=== PATIENT | male | born 1940 | race Caucasian/White ===

== ENCOUNTER → 2016-11-08 | Day surgery (SDC) | payer OTHER ==
[~2016-11-08] MED LIST: ALEVE PM CAPLE1 EACH; ALEVE220 M1 PO; CENTRUM PO; COUMADIN2.5 MG PO; LORTAB 10-5001 EACH PO; MOVE FREE; PANTOPRAZOLE SO40 MG PO; VOLTAREN75 MG PO; WARFARIN SODIUM2 MG PO
--- NOTE | ~2016-11-08 | OR ---
Unit #: [id number] #: [id number] Patient: PHILIPP KUMAR [id number] [address] [address] [id number] MR#: [id number] NAME: PHILIPP KUMAR. ROOM: Date of Procedure: 11/08/2016 Admission Date: 11/08/2016 Surgeon: Riley Morgan M.D. : 1940 Attending Physician: Riley Morgan M.D. Primary Care Physician: Nj Douglass M.D. OPERATIVE REPORT PRIMARY CARE PHYSICIAN Nj Douglass M.D. PREOPERATIVE DIAGNOSES Left upper quadrant abdominal pain and dyspepsia as well as left lower quadrant abdominal pain and colorectal cancer screening. PROCEDURES PERFORMED Upper gastrointestinal endoscopy and biopsy as well as colonoscopy up to cecum. POSTOPERATIVE DIAGNOSES For upper endoscopy: 1. The patient had medium-sized hiatus hernia. 2. There was mild prepyloric antral erosive gastritis. 3. There was moderate focal patchy erosive duodenitis involving the duodenal bulb. 4. Rest of the examination up to third part of duodenum was normal. A biopsy was obtained from the antrum for CLOtest. For colonoscopy: The patient had mild sigmoid and descending colon diverticulosis. Otherwise, examination was normal up to cecum. The quality of the prep was good. RECOMMENDATIONS The patient will be followed up in the office in 8 to 10 weeks' time along with results of biopsies taken today. In the meantime, he will be started on pantoprazole 40 mg p.o. daily. SEDATION USED MAC. DESCRIPTION OF PROCEDURE Following detailed explanation of the potential risks and complications of an upper endoscopy and a colonoscopy, namely perforation, bleeding, and complications related to sedation, the patient was brought to GI lab and laid in the left lateral decubitus position. Lubricated tip of the Olympus video upper endoscope was passed through the bite block into the proximal esophagus under direct vision. The entire esophageal mucosa was examined and appeared normal. Z-line was nicely demarcated, there being no esophagitis. The patient however did have a medium-sized hiatus hernia. The scope was then advanced into the gastric cavity and the latter was insufflated. Mucosa of the fundus, body, and antrum was Unit #: [id number] #: [id number] Patient: PHILIPP KUMAR examined and mild prepyloric antral erythema erosions noted indicating antral gastritis. Pylorus was intubated with visualization of the duodenal bulb. The latter was noted to have focal patchy erosive moderate duodenitis. Second and third part of duodenum were normal. Upon withdrawal and retroflexion, incisura, cardia, and greater curve was examined and biopsy was obtained from the antrum for CLOtest. The scope was then withdrawn in the distal esophagus. Entire esophageal mucosa was examined all the way up to pharynx. No additional findings were noted. The examination table was then turned by 180 degrees and the patient positioned for a colonoscopy. A digital rectal examination was performed, which was normal. Lubricated tip of the Olympus video colonoscope was inserted through the anus and advanced under direct vision. The scope was advanced past rectosigmoid into descending colon. Multiple small diverticula were seen in this area. The scope tip was then navigated all the way up to cecum with visualization of the ileocecal valve and appendiceal orifice. Preparation was good with good visualization and photodocumentation was obtained. Successive segments of the colonic mucosa were examined upon withdrawal and appeared unremarkable. There being no polyps, mass lesions, or AVMs. Other than the diverticula seen in the left side, no other abnormalities were noted. The patient did not have any hemorrhoids at anal verge. The scope was then withdrawn and the patient returned to the recovery area. He tolerated the procedure without any postprocedure complications. Dictated by... Kalyani Carrillo/leonor TD: 11/08/2016 16:48 JOB #: [id number] CC: Nj Douglass M.D. OPERATIVE REPORT Page 1 of 1 X Riley Morgan MD X PROCEDURE OPERATIVE NOTE
== END | disposition home or self-care (01) ==
LOC: COPS 13:36
DX: Z12.11 Encounter for screening for malignant neoplasm of colon (principal); K57.30 Diverticulosis of large intestine without perforation or abscess without bleeding; K29.00 Acute gastritis without bleeding; K29.80 Duodenitis without bleeding; K44.9 Diaphragmatic hernia without obstruction or gangrene; I10 Essential (primary) hypertension; F17.210 Nicotine dependence, cigarettes, uncomplicated; Z92.3 Personal history of irradiation; Z91.041 Radiographic dye allergy status; Z79.1 Long term (current) use of non-steroidal anti-inflammatories (NSAID); Z96.651 Presence of right artificial knee joint; Z90.79 Acquired absence of other genital organ(s); Z98.41 Cataract extraction status, right eye; Z96.1 Presence of intraocular lens; Z98.890 Other specified postprocedural states
CPT/HCPCS: 87077